=== PATIENT | female | born 1960 | race Caucasian/White ===

== ENCOUNTER 2017-08-10 20:07 | Emergency (ER) | payer OTHER ==
[2017-08-10] MEDS: HYDROCODONE/APAP (10/325) TAB PO (21:37)
[2017-08-10 22:11] LABS: ADD MAN DIFF? NO
[2017-08-10 22:16] LABS: BASOPHIL # 0.1 10^3/ul (0.0-0.1); BASOPHILS % 0.5 % (0.0-2.0); EOSINOPHILS # 0.3 10^3/ul (0.0-0.5); EOSINOPHILS % 3.5 % (0.0-7.0); HEMATOCRIT 42.6 % (37.0-47.0); LYMPHOCYTES # 3.1 10^3/ul (0.8-2.9); LYMPHOCYTES % 32.9 % (15.0-51.0); MEAN CORPUSCULAR HEMOGLOBIN 26.9 pg (29.0-33.0); MEAN CORPUSCULAR HGB CONC 32.9 g/dl (32.0-37.0); MEAN CORPUSCULAR VOLUME 81.8 fl (82.0-101.0); MEAN PLATELET VOLUME 10.7 fl (7.4-10.4); MONOCYTE # 0.6 10^3/ul (0.3-0.9); MONOCYTES % 6.7 % (0.0-11.0); NEUTROPHIL # 5.2 10^3/ul (1.6-7.5); PLATELET COUNT 271 10^3/UL (140-415); RED BLOOD COUNT 5.21 10^6/ul (4.20-5.40); RED CELL DISTRIBUTION WIDTH 12.6 % (11.5-14.5)
[2017-08-10 22:16] LABS: WHITE BLOOD COUNT 9.3 10^3/ul (4.8-10.8)
[2017-08-10 22:37] LABS: ANION GAP 15 (8-16); BLOOD UREA NITROGEN 15 mg/dl (7-20); CALCIUM 9.3 mg/dl (8.4-10.2); CARBON DIOXIDE 27 mmol/L (21-31); CHLORIDE 104 mmol/L (97-110); CREATININE 0.48 mg/dl (0.44-1.00); GLUCOSE 121 mg/dl (70-220); POTASSIUM 4.5 mmol/L (3.5-5.1); SODIUM 141 mmol/L (135-144)
[2017-08-10] MEDS: morphine 4 MG/ML VIAL IM (22:55)
[2017-08-10 23:05] LABS: URIC ACID 2.3 mg/dl (3.1-7.9)
[2017-08-10 23:41] LABS: ERYTHROCYTE SEDIMENTATION RATE 7 mm/Hr (0-30)
== END 2017-08-11 00:17 | disposition home or self-care (01) ==
LOC: FTE 08-11 00:17
DX: M25.531 Pain in right wrist (principal); L03.90 Cellulitis, unspecified; E11.9 Type 2 diabetes mellitus without complications
CPT/HCPCS: 29125; 73110-RT; 80048; 84560; 85025; 85651; 86140; 96372; 99284-25

== ENCOUNTER 2017-09-12 08:21 | Day surgery (SDC) | payer OTHER ==
[2017-09-12] MEDS ORDERED: CEFAZOLIN 1 GM/50 ML (PMX) 50 ML IVPB (08:30)
[2017-09-12] MEDS ORDERED: ROCURONIUM 50 MG INJ (09:39)
[2017-09-12] MEDS ORDERED: FENTAnyl 50 MCG/ML VIAL ×2 (09:39→10:40)
[2017-09-12] MEDS ORDERED: MIDAZOLAM 1 MG/ML 2 ML INJ (09:39)
[2017-09-12] MEDS ORDERED: PROPOFOL 20 ML (09:39)
[2017-09-12] MEDS ORDERED: HYDROmorphONE (0.2 MG/ML) 10ML SYG IV ×3 (10:00)
[2017-09-12] MEDS ORDERED: METOCLOPRAMIDE 10 MG INJ IV (10:00)
[2017-09-12] MEDS ORDERED: DIPHENHYDRAMINE 50 MG INJ IV (10:00)
[2017-09-12] MEDS ORDERED: OXYCODONE/ACETAMINOPHEN (5/325) TAB PO (10:00)
[2017-09-12] MEDS ORDERED: FENTAnyl 50 MCG/ML VIAL IV ×2 (10:00)
[2017-09-12] MEDS ORDERED: MEPERIDINE 25 MG INJ IV (10:00)
[2017-09-12] MEDS ORDERED: LABETALOL HCL 20MG INJ IV (10:00)
[2017-09-12] MEDS ORDERED: ONDANSETRON 4 MG INJ IV (10:00)
[2017-09-12] MEDS ORDERED: EPHEDrine SULFATE 50 MG/5 ML SYG IV (10:00)
[2017-09-12] MEDS ORDERED: PHENYLephrine (100 MCG/ML) 5ML SYG ×2 (10:47→11:07)
[2017-09-12] MEDS ORDERED: KETOROLAC 30 MG INJ (10:53)
[2017-09-12] MEDS ORDERED: ONDANSETRON 4 MG INJ (10:53)
[2017-09-12] MEDS ORDERED: METOCLOPRAMIDE 10 MG INJ (10:53)
[2017-09-12] MEDS ORDERED: DEXAMETHASONE 4 MG/ML 1 ML INJ (10:53)
[2017-09-12] MEDS ORDERED: SUGAMMADEX SODIUM 200 MG/2 ML VIAL IV (10:53)
[2017-09-12] MEDS ORDERED: CEFAZOLIN 1 GM INJ (10:53)
[2017-09-12] MEDS: LIDOCAINE 1%/EPI 30 ML INJ (11:04)
[2017-09-12] MEDS: ERYTHROMYCIN 1 GM OPH OINT ZFS (11:07)
[2017-09-12] MEDS: GELATIN SIZE 100 SPONGE (11:10)
[2017-09-12] MEDS: CIPROFLOXACIN HCL OTIC DROP 0.25 ML (11:11)
[2017-09-12] MEDS: FENTAnyl 50 MCG/ML VIAL IV ×2 (12:08→12:19)
== END 2017-09-12 13:30 | disposition home or self-care (01) ==
LOC: SDS 08:21
DX: H72.92 Unspecified perforation of tympanic membrane, left ear (principal); E11.9 Type 2 diabetes mellitus without complications; I10 Essential (primary) hypertension
CPT/HCPCS: 69631; 82962

== ENCOUNTER 2018-04-17 10:52 | Day surgery (SDC) | payer OTHER ==
[2018-04-17] MEDS ORDERED: ROCURONIUM 50 MG INJ (13:38)
[2018-04-17] MEDS ORDERED: PROPOFOL 20 ML (13:38)
[2018-04-17] MEDS ORDERED: CEFAZOLIN 1 GM INJ (13:38)
[2018-04-17] MEDS ORDERED: MIDAZOLAM 1 MG/ML 2 ML INJ (13:39)
[2018-04-17] MEDS ORDERED: FENTAnyl 50 MCG/ML VIAL (13:39)
[2018-04-17] MEDS ORDERED: HYDROmorphONE 1 MG/5 ML IV SYRINGE IV ×3 (14:00)
[2018-04-17] MEDS ORDERED: MEPERIDINE 25 MG INJ IV (14:00)
[2018-04-17] MEDS ORDERED: ONDANSETRON 4 MG INJ IV (14:00)
[2018-04-17] MEDS ORDERED: METOCLOPRAMIDE 10 MG INJ IV (14:00)
[2018-04-17] MEDS ORDERED: EPHEDrine SULFATE 50 MG/5 ML SYG IV (14:00)
[2018-04-17] MEDS ORDERED: DIPHENHYDRAMINE 50 MG INJ IV (14:00)
[2018-04-17] MEDS ORDERED: hydrALAzine 20 MG INJ IV (14:00)
[2018-04-17] MEDS ORDERED: FENTAnyl 50 MCG/ML VIAL IV ×3 (14:00)
[2018-04-17] MEDS ORDERED: LABETALOL HCL 20MG INJ IV (14:00)
[2018-04-17] MEDS ORDERED: OXYCODONE/ACETAMINOPHEN (5/325) TAB PO (14:00)
[2018-04-17] MEDS ORDERED: DEXAMETHASONE 4 MG/ML 1 ML INJ (14:25)
[2018-04-17] MEDS ORDERED: KETOROLAC 30 MG INJ (14:25)
[2018-04-17] MEDS ORDERED: ONDANSETRON 4 MG INJ (14:25)
[2018-04-17] MEDS ORDERED: METOCLOPRAMIDE 10 MG INJ (14:25)
[2018-04-17] MEDS: LIDOCAINE 1%/EPI 30 ML INJ (14:38)
[2018-04-17] MEDS: GELATIN SIZE 100 SPONGE (14:38)
[2018-04-17] MEDS: CIPROFLOXACIN HCL OTIC DROP 0.25 ML (14:39)
[2018-04-17] MEDS ORDERED: NEOSTIGMINE 3 MG/3 ML SYRINGE (15:03)
[2018-04-17] MEDS ORDERED: GLYCOPYRROLATE 0.4 MG INJ (15:03)
[2018-04-17] MEDS ORDERED: SUGAMMADEX SODIUM 200 MG/2 ML VIAL IV (15:10)
== END 2018-04-17 17:15 | disposition home or self-care (01) ==
LOC: SDS 10:52
DX: H72.92 Unspecified perforation of tympanic membrane, left ear (principal); E11.9 Type 2 diabetes mellitus without complications; I10 Essential (primary) hypertension
CPT/HCPCS: 69631